=== PATIENT | female | born 1955 | race Caucasian/White ===

== ENCOUNTER 2023-10-06 19:27 | Inpatient (IN) | payer OTHER ==
[~2023-10-06] VITALS: Ht 162.6 cm; Wt 49.9 kg
[2023-10-06 20:00] LABS: Hematocrit 39.7 % (33.0-51.0); Hemoglobin 13.6 g/dL (11.5-16.0); Mean Corpuscular HGB 26.7 pg (26.0-34.0); Mean Corpuscular HGB Conc 34.3 g/dL (31.5-36.5); Mean Corpuscular Volume 78 fL (80-100); Mean Platelet Volume 9.9 fL (9.1-12.4); Platelet Count 142 K/mm3 (150-400); RDW Coefficient Variation 14.5 % (11.7-14.2); RDW Standard Deviation 40.5 fL (35.1-46.3); White Blood Cell Count 16.18 K/mm3 (4.00-11.30)
[2023-10-06] MEDS ORDERED: Lactated Ringer's 1,000 ML IV ONE (20:15)
[2023-10-06] MEDS ORDERED: Ondansetron HCl 2 MG / ML 2ML Vial IV ONE (20:15)
[2023-10-06 20:17] LABS: BAND PERCENT MAN 13 % (0-8); BASOPHILS PERCENT MAN 0 % (0-2); EOSINOPHILS PERCENT MAN 0 % (0-6); LYMPHOCYTES ABSOLUTE MAN 0.16 K/mm3 (0.84-5.20); LYMPHOCYTES PERCENT MAN 1 % (21-46); MONOCYTES ABSOLUTE MAN 0.48 K/mm3 (0.16-1.47); MONOCYTES PERCENT MAN 3 % (4-13); NEUTROPHILS ABSOLUTE MAN 15.53 K/mm3 (1.96-9.15); SEG NEUTROPHILS PERCENT MAN 83 % (41-73); TOTAL CELLS COUNTED 100
[2023-10-06 20:28] LABS: Albumin, Blood 2.4 g/dL (3.4-5.0); Albumin/Globulin Ratio 0.6 (0.8-1.8); Bilirubin, Total 0.7 mg/dL (0.1-1.0); Bun/Creatinine Ratio 27.1 (12.0-20.0); Calcium, Blood 8.2 mg/dL (8.5-10.1); Creatinine, Blood 1.55 mg/dL (0.40-1.00); Globulin, Blood 4.1 g/dL (2.2-4.0); Potassium, Blood 3.9 mmol/L (3.5-5.5); Total Protein, Blood 6.5 g/dL (6.4-8.2)
[2023-10-06] MEDS ORDERED: Ondansetron HCl 2 MG / ML 2ML Vial ONE (20:34)
[2023-10-06] MEDS ORDERED: Acetaminophen 325 MG TABLET PO ONE (20:35)
[2023-10-06] MEDS ORDERED: CefOXitin Sodium 1,000 MG in NS 50 ML IV ONE (20:40)
[2023-10-06 21:01] LABS: Base Excess Venous 4 mmol/L; Bicarbonate Venous 25.7 mmol/L (24.0-30.0); PCO2 Venous 49.6 mmHg (38-42); pH Blood Venous 7.38 (7.34-7.37)
[2023-10-06 21:32] LABS: Influenza A, PCR NEGATIVE (NEGATIVE); Influenza B, PCR NEGATIVE (NEGATIVE); Resp Syncytial Virus, PCR NEGATIVE (NEGATIVE); SARS-Cov-2 (COVID-19) PCR, MMC NEGATIVE (NEGATIVE)
[2023-10-06 21:39] LABS: Source, Urine Straight Cath
[2023-10-06 21:42] LABS: Bilirubin, Urine Neg (Neg); Blood, Urine 5+ (Neg); Glucose Qualitative, Urine Neg (Neg); Ketones, Urine Neg (Neg); Leukocyte Esterase, Urine 3+ (Neg); Nitrite, Urine Pos (Neg); Protein, Urine 3+ (Neg); Specific Gravity, Urine 1.015 (1.003-1.022); Urobilinogen, Urine NORM (Normal)
[2023-10-06 21:58] LABS: Appearance, Urine Cloudy (Clear); Bacteria Many /hpf; Color, Urine Yellow (P-Yellow); Squamous Epithelial Cells Few /hpf (Few); White Blood Cells, Urine TNTC /hpf (0-5)
[2023-10-07] MEDS ORDERED: Ondansetron 4 MG SoluTab MM PRN (03:35)
[2023-10-07] MEDS ORDERED: Acetaminophen 325 MG TABLET PO PRN (03:35)
[2023-10-07] MEDS ORDERED: CefTRIAXone Sodium 1,000 MG in NS 100 ML IV SCH (03:48)
[2023-10-07] MEDS ORDERED: Tamsulosin HCl 0.4 MG Cap PO SCH (04:00)
[2023-10-07] MEDS ORDERED: Enoxaparin 40 MG/0.4 ML SYR SC SCH (09:00)
[2023-10-07] MEDS ORDERED: Enoxaparin 30 MG/0.3 ML SYR SC SCH (09:00)
[2023-10-07] MEDS ORDERED: Lactobacil 2-S.Thermo-Bifido 1 1 Cap PO SCH (09:00)
[2023-10-07] MEDS ORDERED: NS 1,000 ML IV SCH (18:00)
[2023-10-07] MEDS ORDERED: FentaNYL Citrate 50 MCG/ML 2 ML Injection IV PRN (18:00)
[2023-10-07] MEDS ORDERED: TraMADol HCl 50 MG Tab PO STA (18:02)
[2023-10-07] MEDS ORDERED: TraMADol HCl 50 MG Tab PO PRN (18:05)
[2023-10-07 21:42] VITALS: BP 130/80
[2023-10-08 03:55] VITALS: BP 150/79
[2023-10-08 05:18] LABS: Hematocrit 35.1 % (33.0-51.0); Hemoglobin 11.8 g/dL (11.5-16.0); Mean Corpuscular HGB 26.7 pg (26.0-34.0); Mean Corpuscular HGB Conc 33.6 g/dL (31.5-36.5); Mean Corpuscular Volume 79 fL (80-100); Mean Platelet Volume 10.8 fL (9.1-12.4); Platelet Count 139 K/mm3 (150-400); RDW Coefficient Variation 14.5 % (11.7-14.2); RDW Standard Deviation 42.1 fL (35.1-46.3); Red Blood Cell Count 4.42 M/mm3 (3.80-5.20); White Blood Cell Count 10.79 K/mm3 (4.00-11.30)
[2023-10-08 05:43] LABS: BAND PERCENT MAN 5 % (0-8); BASOPHILS PERCENT MAN 0 % (0-2); EOSINOPHILS PERCENT MAN 0 % (0-6); LYMPHOCYTES ABSOLUTE MAN 1.29 K/mm3 (0.84-5.20); LYMPHOCYTES PERCENT MAN 12 % (21-46); MONOCYTES ABSOLUTE MAN 1.83 K/mm3 (0.16-1.47); MONOCYTES PERCENT MAN 17 % (4-13); NEUTROPHILS ABSOLUTE MAN 7.66 K/mm3 (1.96-9.15); SEG NEUTROPHILS PERCENT MAN 66 % (41-73); TOTAL CELLS COUNTED 100
[2023-10-08 05:46] LABS: Bun/Creatinine Ratio 20.4 (12.0-20.0); Calcium, Blood 7.6 mg/dL (8.5-10.1); Creatinine, Blood 1.08 mg/dL (0.40-1.00); Potassium, Blood 3.6 mmol/L (3.5-5.5)
--- NOTE | 2023-10-08 06:12 | NUR ---
END OF SHIFT SUMMARY NEW ADMIT FOR UTI/SEPSIS. PT A&OX4. IND WITH ADLS. DENIES PAIN OR URINARY DISCOMFORT. VOIDING CLEAR VICTORIA URINE. IVF INFUSING. TOLERATING PO INTAKE. PER CHANNING, [employer]OCIATE, [facility]AUR NOTIFIED HOUSE SUP THIS AM OF STILL NO AVAILABLE BED FOR TRANSFER.
[2023-10-08 07:29] VITALS: BP 131/86
[2023-10-08 15:57] VITALS: BP 140/84
--- NOTE | 2023-10-08 17:59 | NUR ---
SHIFT SUMMARY PT CONT LEVEL OF CARE WITH NO ACUTE CHANGES NOTED. PT CONT WITH NS @ 100/HR. PLACED NEW IV THIS SHIFT TO RAC D/T IV IN LAC STARTED LEAKING. PT TOLERATED WELL WITH NO C/O. PT NOTED TO BE INDEPENDENT IN ROOM. PT AT BEDSIDE VISITING AT THIS TIME.
[2023-10-08 21:28] VITALS: BP 138/82
--- NOTE | 2023-10-08 23:45 | NUR ---
ASSUMED CARE OF PT AT 2340 AND THIS RN AGREES TO NOCTE SHIFT ASSESSEMENT FINDINGS.
--- NOTE | 2023-10-09 04:26 | NUR ---
SUMMARY: PT A/OX4, CALLS APPROPRIATELY TO SPECIFY NEEDS AND IS PLEASANT AND COOPERATIVE W/CARE. SHE'S INDEPENDENT IN ROOM AND UP AD DOLLY TO RESTROOM. NS INFUSES AT 100 ML/HR AND IV ABX BEING RECEIVED FOR UTI. NO ACUTE CHANGES, VSS/AFEBRILE. POSSIBLE D/C TODAY. WCTM AND REPORT TO DAY RN.
[2023-10-09 05:23] LABS: Bun/Creatinine Ratio 16.8 (12.0-20.0); Creatinine, Blood 1.01 mg/dL (0.40-1.00); Potassium, Blood 3.7 mmol/L (3.5-5.5)
[2023-10-09 06:30] VITALS: BP 143/87
[2023-10-09 07:34] VITALS: BP 144/94
[2023-10-09] MEDS ORDERED: Enoxaparin 40 MG/0.4 ML SYR SC SCH (09:00)
[2023-10-09] MEDS ORDERED: CIPR500 PO (12:01)
[2023-10-09] MEDS ORDERED: VISBIOME 112.51 EACH PO (12:02)
[2023-10-09] MEDS ORDERED: TAMS.4ER PO (12:03)
--- NOTE | 2023-10-09 13:05 | NUR ---
DISCHARGE SUMMARY PT DC THIS SHIFT. DC INSTRUCTION GIVEN BY JEANNE NAJERA RN. PT WAS LEFT FLOOR VIA WHEELCHAIR ACCOMPANIED BY [employer]ENSION SERVICE AGENT AND TO PRIVATE VEHICLE.
== END 2023-10-09 12:45 | disposition home or self-care (01) | DRG 872 ==
LOC: ER 19:27 → ERHOLD 19:28 → MEDS 10-07 14:08 → ERHOLD 10-07 14:08 → MEDS 10-07 21:11 → ENPENDDIS 10-09 12:39 → MEDS 10-09 12:45
PROVIDERS: Emergency Medicine; Internal Medicine; ADMIT Family Medicine
DX: A41.51 Sepsis due to Escherichia coli [E. coli] (principal); N17.9 Acute kidney failure, unspecified; N13.6 Pyonephrosis; E87.1 Hypo-osmolality and hyponatremia; Z88.5 Allergy status to narcotic agent; Z88.8 Allergy status to other drugs, medicaments and biological substances; N20.0 Calculus of kidney; D69.6 Thrombocytopenia, unspecified; Z79.891 Long term (current) use of opiate analgesic; R51.9 Headache, unspecified
CPT/HCPCS: 0241U; 36415; 71045; 74177; 80048; 80053; 81001; 82803; 82947; 83605; 85025; 87040; 87077; 87086; 87186; 93005; 93010; 96361; 96365-59; 96366; 96367; 96372-59; 96375; 99285-25; A9270; G0378; J0694; J0696; J1650; J2405; J7030; J7120; Q9967